=== PATIENT | male | born 1985 | race Caucasian/White ===

== ENCOUNTER 2017-11-04 01:15 | Inpatient (IN) | payer OTHER ==
[~2017-11-04] VITALS: Ht 172.7 cm; Wt 81.7 kg
[~2017-11-04 01:15] MED LIST: IBUPROFEN200 M1 PO
[2017-11-04 01:51] LABS: HEMATOCRIT 47.4 % (38.0-50.0); HEMOGLOBIN 16.8 G/DL (12.5-16.6); MCHC 35.4 G/DL (30.0-36.0); MCV 87.5 FL (86-99); PLATELET COUNT 183 K/uL (156-360); RBC DIS.WIDTH-SD 41.7 % (39-53); RED BLOOD COUNT 5.42 M/uL (4.00-5.50); WHITE BLOOD COUNT 24.3 K/uL (4.1-10.2)
[2017-11-04 02:01] LABS: ALBUMIN 4.5 g/dL (3.2-4.8)
[2017-11-04 02:02] LABS: CHLORIDE 98 mEq/L (99-109); POTASSIUM 3.6 mEq/L (3.7-5.4); SODIUM 135 mEq/L (136-147)
[2017-11-04 02:04] LABS: GLUCOSE 159 mg/dL (70-99); TOTAL PROTEIN 8.2 g/dL (6.4-8.3)
[2017-11-04 02:06] LABS: TOTAL BILIRUBIN 1.5 mg/dL (0.0-1.0)
[2017-11-04 02:07] LABS: ALKALINE PHOSPHATASE 168 IU/L (3-129)
[2017-11-04 02:08] LABS: GFR ESTIMATE (CALCULATED) > 59 mL/min/ (58.99-99999)
[2017-11-04 02:09] LABS: AST (GOT) 72 IU/L (2-34); UREA NITROGEN (BUN) 13 mg/dL (9-23)
[2017-11-04 02:10] LABS: ALT (GPT) 73 IU/L (3-49)
[2017-11-04 02:11] LABS: LIPASE 14 U/L (1.0-51.0)
[2017-11-04 02:36] LABS: APPEARANCE SL.HAZY ((CLEAR)); BILIRUBIN NEGATIVE; BLOOD SMALL; COLOR AMBER ((YELLOW)); GLUCOSE (STRIP) NEGATIVE; KETONES 20; LEUKOCYTES NEGATIVE; NITRITE NEGATIVE; PROTEIN (STRIP) 100; SPECIFIC GRAVITY 1.024 (1.000-1.030)
[2017-11-04 02:40] LABS: BACTERIA RARE /HPF; EPITHELIAL CELLS NONE SEEN /HPF; MUCUS 4+ /LPF; RED BLOOD CELLS 0-5 /HPF (0-5); UCUL ADDED? NO; WHITE BLOOD CELLS 0-5 /HPF (0-5)
[2017-11-04 05:58] LABS: INTER. NORMALIZED RATIO 1.1
[2017-11-04 06:00] LABS: PTT 30.8 SEC (25-37)
[2017-11-04 14:58] VITALS: BP 118/68
[2017-11-04 20:28] VITALS: BP 139/80
[2017-11-05 00:26] VITALS: BP 123/71
[2017-11-05 04:15] VITALS: BP 127/59
[2017-11-05 06:42] LABS: HEMATOCRIT 35.2 % (38.0-50.0); MCH 30.7 PG (29.0-34.0); MCHC 33.8 G/DL (30.0-36.0); RBC DIS.WIDTH-CV 13.3 % (11.8-14.6); RBC DIS.WIDTH-SD 44.8 % (39-53); WHITE BLOOD COUNT 11.3 K/uL (4.1-10.2)
[2017-11-05 06:43] LABS: CHLORIDE 105 MEQ/L (99-109); CREATININE 0.9 MG/DL (0.6-1.3); GFR ESTIMATE (CALCULATED) > 59 mL/min/ (58.99-99999); GLUCOSE 97 mg/dL (70-99); PHOSPHORUS 2.5 mg/dL (2.5-4.9); SODIUM 141 MEQ/L (136-147); UREA NITROGEN (BUN) 16 mg/dL (9-23)
[2017-11-05 06:46] LABS: HEMOGLOBIN 11.9 G/DL (12.5-16.6); RED BLOOD COUNT 3.87 M/uL (4.00-5.50)
[2017-11-05 06:50] LABS: PLAT.SUFFICIENCY DECREASED
[2017-11-05 06:51] LABS: PLATELET COUNT 113 K/uL (156-360)
[2017-11-05 07:17] VITALS: BP 128/70
[2017-11-05 11:34] VITALS: BP 127/75
[2017-11-05 15:00] VITALS: BP 128/65
[2017-11-05 20:00] VITALS: BP 125/67
[2017-11-06] VITALS: BP 120/60
[2017-11-06 03:55] VITALS: BP 115/67
[2017-11-06 07:07] VITALS: BP 132/74
[2017-11-06 15:31] VITALS: BP 133/78
[2017-11-06 23:10] VITALS: BP 119/74
[2017-11-07 07:47] LABS: HEMATOCRIT 35.2 % (38.0-50.0); HEMOGLOBIN 11.8 G/DL (12.5-16.6); MCH 30.2 PG (29.0-34.0); MCHC 33.5 G/DL (30.0-36.0); RBC DIS.WIDTH-CV 13.2 % (11.8-14.6); RBC DIS.WIDTH-SD 43.7 % (39-53); RED BLOOD COUNT 3.91 M/uL (4.00-5.50); WHITE BLOOD COUNT 8.9 K/uL (4.1-10.2)
[2017-11-07 07:48] LABS: PLATELET COUNT 162 K/uL (156-360)
[2017-11-07 08:00] VITALS: BP 138/75
[2017-11-07 08:28] LABS: CHLORIDE 104 MEQ/L (99-109); CREATININE 0.9 MG/DL (0.6-1.3); GFR ESTIMATE (CALCULATED) > 59 mL/min/ (58.99-99999); GLUCOSE 80 mg/dL (70-99); POTASSIUM 3.6 MEQ/L (3.7-5.4); SODIUM 140 MEQ/L (136-147); UREA NITROGEN (BUN) 18 mg/dL (9-23)
[2017-11-07 16:00] VITALS: BP 114/69
[2017-11-08 01:51] VITALS: BP 127/72
[2017-11-08 07:58] VITALS: BP 136/83
[2017-11-08 16:00] VITALS: BP 137/78
[2017-11-08 23:45] VITALS: BP 131/78
[2017-11-09 06:43] LABS: HEMATOCRIT 36.3 % (38.0-50.0); HEMOGLOBIN 12.2 G/DL (12.5-16.6); MCH 30.3 PG (29.0-34.0); MCHC 33.6 G/DL (30.0-36.0); MCV 90.1 FL (86-99); RBC DIS.WIDTH-CV 13.4 % (11.8-14.6); RBC DIS.WIDTH-SD 44.1 % (39-53); RED BLOOD COUNT 4.03 M/uL (4.00-5.50); WHITE BLOOD COUNT 12.2 K/uL (4.1-10.2)
[2017-11-09 07:20] VITALS: BP 149/66
[2017-11-09 07:43] LABS: PLATELET COUNT 256 K/uL (156-360)
[2017-11-09] MEDS ORDERED: AUGMENTIN875 MG PO (14:30)
[2017-11-09] MEDS ORDERED: HYDROCODON-ACE1 EAC7 PO (14:34)
[2017-11-09] MEDS ORDERED: FLORASTOR250 MG PO (14:34)
[2017-11-09] MEDS ORDERED: MOTRIN600 MG PO (14:34)
[2017-11-09] MEDS ORDERED: COLACE100 MG PO (14:35)
[2017-11-09 15:21] VITALS: BP 131/73
== END 2017-11-09 19:12 | disposition home health service (06) | DRG 338 ==
LOC: EME 01:15 → 2EAST 04:24 → EDOF 04:24 → ENRESERV 04:32 → 2EAST 14:05 → ENPENDDIS 11-09 → 2EAST 11-09 19:12
PROVIDERS: Thoracic Surgery (Cardiothoracic Vascular Surgery)
PROC: 0DTJ0ZZ Resection of Appendix, Open Approach (ICD-10-PCS; principal; 2017-11-04)
DX: K35.2 Acute appendicitis with generalized peritonitis (principal); K55.041 Focal (segmental) acute infarction of large intestine; I96 Gangrene, not elsewhere classified; T81.4XXA Infection following a procedure, initial encounter; F17.210 Nicotine dependence, cigarettes, uncomplicated; R63.0 Anorexia; M79.1 Myalgia; K38.1 Appendicular concretions; B99.9 Unspecified infectious disease; B96.20 Unspecified Escherichia coli [E. coli] as the cause of diseases classified elsewhere
CPT/HCPCS: 74177; 80048; 80053; 81003; 83605; 83690; 83735; 84100; 85027; 85610; 85730; 87040; 87070; 87075; 87076; 87077; 87106; 87185; 87186; 87205; 87502; 87801; 88304; 99281; 99285; J1100; J1170; J1650; J1885; J2250; J2270; J2405; J2543; J2710; J3010; J7030; J7050; J7120; S0028